=== PATIENT | male | born 1965 | race Caucasian/White ===

== ENCOUNTER → 2019-05-03 | Outpatient (CLI) | payer OTHER ==
[~2019-05-03] MED LIST: LORTAB 5 MG/5001 TA1 PO; NOHOMEMEDICATIONS
== END ==
LOC: M.MRI 16:02
DX: S46.012A Strain of muscle(s) and tendon(s) of the rotator cuff of left shoulder, initial encounter (principal); M19.012 Primary osteoarthritis, left shoulder; M25.812 Other specified joint disorders, left shoulder; X58.XXXA Exposure to other specified factors, initial encounter; Y93.89 Activity, other specified; Y92.89 Other specified places as the place of occurrence of the external cause; Y99.8 Other external cause status

== ENCOUNTER → 2020-02-14 | Outpatient (CLI) | payer OTHER | LOC: M.CT 08:00 | PROVIDERS: ATTEND Family Medicine | DX: Z13.6 Encounter for screening for cardiovascular disorders (principal) ==

== ENCOUNTER 2020-08-04 16:07 | Emergency (ER) | payer OTHER ==
[~2020-08-04] VITALS: Ht 180.3 cm; Wt 114.3 kg
[2020-08-04] MEDS ORDERED: ZESTORETIC 20-1 EACH PO (16:20)
[2020-08-04 16:24] LABS: URINE BILIRUBIN NEGATIVE (Negative); URINE BLOOD NEGATIVE (Negative); URINE CLARITY CLEAR; URINE COLOR YELLOW; URINE GLUCOSE-RANDOM NEGATIVE (Negative); URINE KETONES NEGATIVE (Negative); URINE LEUKOCYTES-REFLEX NEGATIVE (Negative); URINE NITRITE-REFLEX NEGATIVE (Negative); URINE PROTEIN NEGATIVE (Negative); URINE UROBILINOGEN 0.2 E.U./dl (0.2-1.0)
[2020-08-04 16:47] LABS: ABSOLUTE BASOPHILS 0.1 thou/uL (0.0-0.2); ABSOLUTE EOSINOPHILS 0.7 thou/uL (0.0-0.7); ABSOLUTE LYMPHOCYTES 2.1 thou/uL (0.8-5.3); ABSOLUTE MONOCYTES 1.3 thou/uL (0.0-1.2); ABSOLUTE NEUTROPHILS 12.2 thou/uL (1.6-8.1); BASOPHILS 0.6 %; HEMATOCRIT 46.9 % (42.0-52.0); HEMOGLOBIN 15.5 gm/dL (14.0-18.0); LYMPHOCYTES 12.6 %; MCH 28.9 pg (26.0-34.0); MCHC 33.1 g/dL (28.0-37.0); MCV 87.3 fL (80.0-100.0); MONOCYTES 8.2 %; MPV 7.7 fl. (7.2-11.1); NUCLEATED RBCS 0 /100WBC; PLATELET COUNT* 346 thou/uL (150-400); POLYS 74.6 %; RBC 5.37 mil/uL (4.50-6.00); RDW-CV 13.5 % (10.5-14.5); WBC 16.3 thou/uL (4.0-11.0)
[2020-08-04 16:55] LABS: CALCIUM 9.2 mg/dL (8.5-10.1); CREATININE 1.1 mg/dL (0.6-1.3); POTASSIUM 3.9 mmol/L (3.5-5.1)
[2020-08-04 17:09] LABS: ALBUMIN 3.9 g/dL (3.4-5.0); TOTAL BILIRUBIN 0.7 mg/dL (<0.1-1.0); TOTAL PROTEIN 7.7 g/dL (6.4-8.2)
[2020-08-04] MEDS ORDERED: LEVOFLOXACIN750 MG PO (18:00)
[2020-08-04] MEDS ORDERED: FLAGYL500 M1 PO (18:00)
[2020-08-04] MEDS ORDERED: LEVSIN0.125 MG PO (18:01)
[2020-08-04] MEDS ORDERED: ZOFRAN ODT4 MG PO (18:01)
[2020-08-04 18:35] VITALS: BP 139/77
--- NOTE | 2020-08-06 12:25 | EKG ---
[place] [address] ELECTROCARDIOGRAM REPORT Name: NICOLASLUKASZ STARKEY Room: [facility]#: [id number] Admission: 08/04/20 Attend Phys: Discharge: 08/04/20 Date of : 69 Date of Service: 08/04/20 1625 Report #: [id number] THIS REPORT FOR: //name// [facility] ED Test Date: 2020-08-04 Test Time: 16:25:26 Pat Name: LUKASZ VALENZUELA Department: Room: Gender: [employer]ist: : [id number] Requested By: Marco A Ross Order Number: [id number] MD: Gerber Zuñiga Measurements Intervals Silt Rate: 70 P: 18 [place]: 185 QRS: -16 QRSD: 86 T: 30 QT: 380 QTc: 410 Interpretive Statements Sinus rhythm Left ventricular hypertrophy No previous ECG available for comparison Electronically Signed On 08-06-2020 12:25:32 CDT by Gerber Zuñiga [email or web address] <ELECTRONICALLY SIGNED> By: Glenna Zuñiga MD, [facility] 08/06/20 1225 1625 1625 Glenna Zuñiga MD, [facility] /EPI
== END 2020-08-04 18:37 | disposition home or self-care (01) ==
LOC: M.ERS 16:07
PROVIDERS: Emergency Medicine
DX: K57.30 Diverticulosis of large intestine without perforation or abscess without bleeding (principal); D72.829 Elevated white blood cell count, unspecified

== ENCOUNTER → 2020-12-11 | Outpatient (CLI) | payer OTHER ==
[~2020-12-11] MED LIST changes: +CYCLOBENZAPRINE5 MG PO; +FLAGYL500 M1 PO; +HYDROCODON-ACE1 EAC5 PO; +LEVOFLOXACIN750 MG PO; +LEVSIN0.125 MG PO; +MELOXICAM PO; +REPATHA SU140 MG/1 M SQ; +ZESTORETIC 20-1 EACH PO; +ZOFRAN ODT4 MG PO
== END ==
LOC: M.PC 09:03
PROVIDERS: ATTEND Physical Medicine & Rehabilitation
DX: M47.814 Spondylosis without myelopathy or radiculopathy, thoracic region (principal); M47.816 Spondylosis without myelopathy or radiculopathy, lumbar region; M48.07 Spinal stenosis, lumbosacral region